=== PATIENT | female | born 1980 | race African-American/Black ===

== ENCOUNTER 2018-08-27 13:09 | Emergency (ER) | payer BC ==
[2018-08-27] MEDS ORDERED: Clindamycin 600 MG IVPREMIX(* 600 MG/50 ML SDV IV ONE (13:18)
--- NOTE | 2018-08-27 13:22 | ED ---
Throat Pain/Nasal Congestion - HPI Summary HPI Summary: 38 year old female was referred to ED for IV antibiotics to treat a dental abscess. She states the pain is in her lower left jaw and radiates down her neck. She rates it as a 10/10. She has not taken any medication to manage pain. She reports needing a wisdom teeth extraction on the affected side. Denies fever , CP, SOB, vision changes, ear pain, N/V. Endorses difficulty swallowing, jaw and neck pain. - History of Current Complaint Chief Complaint: EDDentalPain Time Seen by Provider: 08/27/18 13:11 Hx Obtained From: Patient - Allergies/Home Medications Allergies/Adverse Reactions: Allergies Allergy/AdvReac Type Severity Reaction Status Date / Time No Known Allergies Allergy Verified 08/27/18 13:19 PMH/Surg Hx/FS Hx/Imm Hx Previously Healthy: Yes Endocrine/Hematology History: Denies: Hx Diabetes Cardiovascular History: Denies: Hx Hypertension Infectious Disease History: No Infectious Disease History: Denies: Traveled Outside the [place] in Last 30 Days - Family History Known Family History: Positive: Non-Contributory - Social History Alcohol Use: Occasionally Alcohol Amount: wine last night Substance Use Type: Reports: None Smoking Status (MU): Never Smoked Tobacco Review of Systems Negative: Fever, Chills Negative: Drainage Positive: Dental Pain. Negative: Sore Throat, Ear Ache, Nasal Discharge Negative: Chest Pain Negative: Shortness Of Breath Negative: Vomiting, Nausea Negative: Headache All Other Systems Reviewed And Are Negative: Yes Physical Exam Triage Information Reviewed: Yes Vital Signs On Initial Exam: Initial Vitals Temp Pulse Resp BP Pulse Ox 97.4 F 89 16 110/72 99 08/27/18 13:12 08/27/18 13:12 08/27/18 13:12 08/27/18 13:12 08/27/18 13:12 Vital Signs Reviewed: Yes Appearance: Positive: Well-Appearing, Well-Nourished, Pain Distress Skin: Positive: Warm, Dry Head/Face: Positive: Other - swelling left side of jaw Eyes: Positive: EOMI, KELLY, Conjunctiva Clear ENT: Positive: Pharynx normal, TMs normal. Negative: Trismus, Muffled voice Dental: Positive: Abscess @ - left lower jaw. Negative: Percussion Tenderness @ Neck: Positive: Tenderness @ - left cervical, Enlarged Nodes @ - left cervical Respiratory/Lung Sounds: Positive: Clear to Auscultation, Breath Sounds Present Cardiovascular: Positive: Normal, RRR Abdomen Description: Positive: Nontender, Soft Bowel Sounds: Positive: Present Musculoskeletal: Positive: Normal Neurological: Positive: Normal Psychiatric: Positive: Normal Diagnostics - Vital Signs Vital Signs Temp Pulse Resp BP Pulse Ox 08/27/18 13:12 97.4 F 89 16 110/72 99 - Laboratory Lab Statement: Any lab studies that have been ordered have been reviewed, and results considered in the medical decision making process. EENT Course/Dx - Course Course Of Treatment: Patient was referred to ED for IV antibiotic therapy for treatment of a dental abscess. Patient presents with 10/10 pain located in her left lower jaw and radiating to her neck. States she is having difficulty swallowing, denies trismus. Physical exam reveals tenderness and swollen left cervical lymph node. A dental abscess is noted in the left, lower jaw. Patient was given IV Toradol for pain and started on IV Clindamycin. will prescribe clindamycin and pain medication. has follow up next with favio. patient understand and agrees with plan. - Differential Diagnoses Differential Diagnoses: Dental Abscess, Dental Caries, Fractured Tooth - Diagnoses Provider Diagnoses: Abscess, jaw Discharge - Sign-Out/Discharge Documenting (check all that apply): Patient Departure - Discharge Plan Condition: Good Disposition: HOME Prescriptions: Clindamycin Cap(NF) [Clindamycin Cap 300 mg Cap(NF)] 300 mg PO TID #20 cap Clindamycin Cap(NF) [Clindamycin Cap 300 mg Cap(NF)] 300 mg PO TID #9 cap HYDROcodone/ACETAMIN 5-325 MG* [[place] 5-325 TAB*] 1 tab PO Q6H PRN #8 tab MDD 4 PRN Reason: Pain Ibuprofen TAB* [Motrin TAB* 600 MG] 600 mg PO Q6H PRN #20 tab PRN Reason: Pain Patient Education Materials: Dental Abscess (ED) Referrals: Shaquille Nava MD [Doctor of Dental Medicine] - Additional Instructions: Take clindamycin three times a day for 10 days Take ibuprofen every 6 hours for pain as needed, use norco every 6 hours as needed for break through pain Avoid hard, crunchy food until seen by dentist Follow up with dentist as soon as possible Return to ED if develop fever, shortness of breath, chest pain or any new or worsening symptoms - Billing Disposition and Condition Condition: GOOD Disposition: Home
[2018-08-27] MEDS ORDERED: NS 0.9% 1000 ML* 1,000 ML IV ONE (13:25)
[2018-08-27] MEDS ORDERED: Ketorolac INJ* 30 MG/ML 1 ML VIAL IV PUSH ONE (13:35)
[2018-08-27] MEDS ORDERED: Morphine VIAL* 4 MG/ML VIAL (1 ml vial) IV ONE (13:35)
[2018-08-27 14:37] VITALS: BP 123/70
== END 2018-08-27 14:36 | disposition home or self-care (01) ==
LOC: ED 13:09
DX: M27.2 Inflammatory conditions of jaws (principal)
CPT/HCPCS: 96361; 96374; 96375; 99282; J1885; J2270